=== PATIENT | female | born 1965 | race Caucasian/White ===

== ENCOUNTER 2016-10-24 20:17 | Emergency (ER) | payer SELFPAY ==
--- NOTE | 2016-10-24 21:08 | ER Document Report ---
ED Medical Screen (RME) - General Stated Complaint: ABNORMAL LABS Notes: 51 yo female sent to Ed by Dr Boyer for abnormal labs. Pt found to have Hemaglobin of 5.2 on labs drawn today. Pt c/o dyspnea, fatigue and dizziness. pt reports heavy vaginal bleeding over past year. pt is alert, VSS S1S2 tachy 102 TRAVEL OUTSIDE OF THE [place] IN LAST 30 DAYS: No - Related Data Allergies/Adverse Reactions: Sulfa (Sulfonamide Antibiotics) Allergy (Verified 08/01/13 13:30) Past Medical History - Past Medical History Cardiac Medical History: Reports: Hx Hypertension Past Surgical History: Reports: Hx Bowel Surgery - BOWEL RESECTION DUE TO DIVERTICULITIS, Hx Breast Surgery - colon resection - Immunizations Hx Diphtheria, Pertussis, Tetanus Vaccination: No
--- NOTE | 2016-10-25 00:27 | ER Document Report ---
ED General - General Chief Complaint: Abnormal Lab Results Stated Complaint: ABNORMAL LABS Notes: Patient is a 51-year-old female that comes emergency department for chief complaint of an abnormal lab results which was drawn this morning at [employer] [facility], patient states she was told comes emergency department. Patient reports symptoms of shortness of breath especially with exertion, occasional lightheadedness, and eating ice constantly. She denies chest pain. Eyes passing out. Patient admits to frequent heavy vaginal bleeding, states 3 weeks ago she was started on Prempro and since that time her vaginal bleeding has significantly reduced. She has not had a pelvic ultrasound for several years. Past medical history of hypertension, anxiety. TRAVEL OUTSIDE OF THE [place] IN LAST 30 DAYS: No - Related Data Allergies/Adverse Reactions: Sulfa (Sulfonamide Antibiotics) Allergy (Verified 10/24/16 21:13) Past Medical History - General Information source: Patient - Social History Smoking Status: Former Smoker Chew tobacco use (# tins/day): No Frequency of alcohol use: Occasional Drug Abuse: None Lives with: Family Family History: Reviewed & Not Pertinent Patient has suicidal ideation: No Patient has homicidal ideation: No - Past Medical History Cardiac Medical History: Reports: Hx Hypertension Renal/ Medical History: Denies: Hx Peritoneal Dialysis Past Surgical History: Reports: Hx Bowel Surgery - BOWEL RESECTION DUE TO DIVERTICULITIS, Hx Breast Surgery - colon resection - Immunizations Hx Diphtheria, Pertussis, Tetanus Vaccination: No Review of Systems - Review of Systems Constitutional: No symptoms reported EENT: No symptoms reported Cardiovascular: See HPI Respiratory: See HPI Gastrointestinal: No symptoms reported Genitourinary: No symptoms reported Female Genitourinary: See HPI Musculoskeletal: No symptoms reported Skin: No symptoms reported Hematologic/Lymphatic: No symptoms reported Neurological/Psychological: See HPI Physical Exam - Vital signs Vitals: Temp Pulse Resp BP Pulse Ox 98.3 F 102 H 20 141/60 H 98 10/24/16 20:30 10/24/16 20:30 10/24/16 20:30 10/24/16 20:30 10/24/16 20:30 Interpretation: Normal - General General appearance: Appears well, Alert In distress: None - HEENT Head: Normocephalic, Atraumatic Eyes: Normal Pupils: PERRL - Respiratory Respiratory status: No respiratory distress Chest status: Nontender Breath sounds: Normal Chest palpation: Normal - Cardiovascular Rhythm: Regular. No: Tachycardia - Not tachycardic on my exam Heart sounds: Normal auscultation, S1 appreciated, S2 appreciated Murmur: No - Abdominal Inspection: Normal Distension: No distension Bowel sounds: Normal Tenderness: Nontender. No: Tender, Guarding - Back Back: Normal, Nontender - Extremities General upper extremity: Normal inspection, Nontender, Normal ROM, Normal strength General lower extremity: Normal inspection, Nontender, Normal ROM, Normal strength - Neurological Neuro grossly intact: Yes Cognition: Normal Orientation: AAOx4 Milvia Coma Scale Eye Opening: Spontaneous Carlyle Coma Scale Verbal: Oriented Milvia Coma Scale Motor: Obeys Commands Carlyle Coma Scale Total: 15 Speech: Normal Motor strength normal: LUE, RUE, LLE, RLE Sensory: Normal - Psychological Associated symptoms: Normal affect, Normal mood - Skin Skin Temperature: Warm Skin Moisture: Dry Skin Color: Pale - Somewhat pale in appearance Course - Re-evaluation Re-evalutation: Chest x-ray unremarkable, CBC shows marked anemia, microcytic. Chemistry unremarkable. Patient asymptomatic on my reevaluation. Ordering transfusion. Patient clarifies that she has had a endometrial biopsy within the past 2 years , told she was "delayed menopause", states that she had "hyperplasia", she is unsure of the other details. She does not currently have an EARLY CHILDHOOD DIRECTOR. She states that the heavy bleeding has almost resolved since she started the Prempro. 10/25/16 Patient was discussed with Dr. Mcclellan, recommends 2 units PRBC and discharge with iron prescription and close follow up referral with OBGYN. This was performed, patient expresses understanding and satisfaction with this plan, states she will return if she worsens and she will call for very close followup. - Vital Signs Vital signs: Temp Pulse Resp BP Pulse Ox 98 F 86 22 H 105/57 L 99 10/25/16 11:25 10/25/16 11:25 10/25/16 15:01 10/25/16 15:01 10/25/16 15:01 - Laboratory Result Diagrams: 10/25/16 15:20 10/24/16 21:25 Laboratory results interpreted by me: 10/24/16 10/24/16 10/25/16 21:25 21:25 15:20 RBC 3.57 L Hgb 5.4 L 7.8 L D Hct 20.3 L 27.1 L MCV 57 L 60 L MCH 15.1 L 17.2 L MCHC 26.6 L 28.6 L RDW 23.7 H 28.3 H Crossmatch See Detail Discharge - Discharge Clinical Impression: Symptomatic anemia Condition: Stable Disposition: HOME, SELF-CARE Additional Instructions: You have been given blood transfusion for low hemoglobin today. You are significantly iron deficient, please take the iron as prescribed. Call the EARLY CHILDHOOD DIRECTOR referral for close follow-up for additional management. Return to emergency department for any concerning or worsening symptoms including dizziness, passing out, etc. Prescriptions: Ferrous Sulfate [Iron] 325 mg PO BID #30 tablet Forms: Return to Work Referrals: [facility] [Provider Group] - 10/26/16
[2016-10-25 02:57] LABS: ABSOLUTE EOSINOPHILS # (AUTO) 0.4 10^3/uL (0.0-0.6); ABSOLUTE LYMPHOCYTES (AUTO) 1.8 10^3/uL (0.5-4.7); ABSOLUTE MONOCYTES (AUTO) 0.4 10^3/uL (0.1-1.4); ABSOLUTE NEUT (AUTO) 6.4 10^3/uL (1.7-8.2); BASOPHILS % (AUTO) 0.4 % (0-2); EOSINOPHILS % (AUTO) 4.5 % (0-6); HEMATOCRIT 20.3 % (36.0-47.0); LYMPHOCYTES % (AUTO) 19.9 % (13-45); MEAN CORPUSCULAR HEMOGLOBIN 15.1 pg (27.0-33.4); MEAN CORPUSCULAR HGB CONC 26.6 g/dL (32.0-36.0); MONOCYTES % (AUTO) 4.7 % (3-13); RED BLOOD COUNT 3.57 10^6/uL (3.72-5.28); RED CELL DISTRIBUTION WIDTH 23.7 % (11.5-14.0); SEGMENTED NEUTROPHILS % (AUTO) 70.5 % (42-78)
[2016-10-25 03:03] LABS: ALANINE AMINOTRANSFERASE 23 U/L (9-52); ALKALINE PHOSPHATASE 79 U/L (38-126); ANION GAP 11 (5-19); ASPARTATE AMINO TRANSFERASE 19 U/L (14-36); BILIRUBIN,TOTAL 0.5 mg/dL (0.2-1.3); BLOOD UREA NITROGEN 14 mg/dL (7-20); CALCIUM 9.1 mg/dL (8.4-10.2); CARBON DIOXIDE 23 mmol/L (22-30); CHLORIDE 104 mmol/L (98-107); CREATINE KINASE 33 U/L (30-135); CREATININE RESULT 0.83 mg/dL (0.52-1.25); GLUCOSE 94 mg/dL (75-110); POTASSIUM 4.5 mmol/L (3.6-5.0); SODIUM 138.3 mmol/L (137-145); TOTAL PROTEIN 7.2 g/dL (6.3-8.2)
[2016-10-25 03:23] LABS: CREATINE KINASE MB < 0.22 ng/mL (<4.55); TROPONIN I < 0.012 ng/mL
[2016-10-25 03:30] LABS: HGB HCT DIFFERENCE -4.1
[2016-10-25 03:35] LABS: MEAN CORPUSCULAR VOLUME 57 fl (80-97)
[2016-10-25 03:40] LABS: ANISOCYTOSIS 3+; HYPOCHROMASIA 2+; MICROCYTOSIS 4+; POIKILOCYTOSIS SLIGHT; TOXIC GRANULATION SLIGHT
[2016-10-25 03:43] LABS: OVALOCYTES SLIGHT; SCHISTOCYTES SLIGHT; TEAR DROP CELLS SLIGHT
[2016-10-25 03:44] LABS: HEMOGLOBIN 5.4 g/dL (12.0-15.5)
[2016-10-25] MEDS ORDERED: NORMAL SALINE 250 ML IV PRN ×2 (04:00)
[2016-10-25 15:51] LABS: ABSOLUTE EOSINOPHILS # (AUTO) 0.3 10^3/uL (0.0-0.6); ABSOLUTE LYMPHOCYTES (AUTO) 1.3 10^3/uL (0.5-4.7); ABSOLUTE MONOCYTES (AUTO) 0.4 10^3/uL (0.1-1.4); ABSOLUTE NEUT (AUTO) 5.7 10^3/uL (1.7-8.2); BASOPHILS % (AUTO) 0.4 % (0-2); EOSINOPHILS % (AUTO) 3.6 % (0-6); HEMATOCRIT 27.1 % (36.0-47.0); HGB HCT DIFFERENCE -3.7; LYMPHOCYTES % (AUTO) 17.1 % (13-45); MEAN CORPUSCULAR HEMOGLOBIN 17.2 pg (27.0-33.4); MEAN CORPUSCULAR HGB CONC 28.6 g/dL (32.0-36.0); MEAN CORPUSCULAR VOLUME 60 fl (80-97); MONOCYTES % (AUTO) 5.2 % (3-13); RED CELL DISTRIBUTION WIDTH 28.3 % (11.5-14.0); SEGMENTED NEUTROPHILS % (AUTO) 73.7 % (42-78); WHITE BLOOD COUNT 7.8 10^3/uL (4.0-10.5)
[2016-10-25 15:57] LABS: HEMOGLOBIN 7.8 g/dL (12.0-15.5)
[2016-10-25 16:04] LABS: ANISOCYTOSIS 3+; HYPOCHROMASIA 2+; MICROCYTOSIS 3+; POLYCHROMASIA SLIGHT; TOXIC GRANULATION SLIGHT
[2016-10-25 16:05] LABS: OVALOCYTES SLIGHT; TARGET CELLS SLIGHT
[2016-10-25 16:22] VITALS: BP 105/57
== END 2016-10-25 16:40 | disposition home or self-care (01) ==
LOC: ER 20:17
DX: D50.9 Iron deficiency anemia, unspecified (principal); N93.9 Abnormal uterine and vaginal bleeding, unspecified; Z79.899 Other long term (current) drug therapy; R06.02 Shortness of breath; R42 Dizziness and giddiness; I10 Essential (primary) hypertension; Z88.2 Allergy status to sulfonamides; Z87.891 Personal history of nicotine dependence
CPT/HCPCS: 99284; 86900; 86901; 36415; 82553; 36430; 86850; 82550; 85025; 80053; 84484; 86920; 71010; P9016

== ENCOUNTER → 2016-10-24 | Outpatient (CLI) | payer SELFPAY ==
[2016-10-24 18:41] LABS: ABSOLUTE EOSINOPHILS # (AUTO) 0.3 10^3/uL (0.0-0.6); ABSOLUTE LYMPHOCYTES (AUTO) 1.5 10^3/uL (0.5-4.7); ABSOLUTE MONOCYTES (AUTO) 0.5 10^3/uL (0.1-1.4); ABSOLUTE NEUT (AUTO) 6.4 10^3/uL (1.7-8.2); BASOPHILS % (AUTO) 0.5 % (0-2); EOSINOPHILS % (AUTO) 3.9 % (0-6); HGB HCT DIFFERENCE -3.8; MEAN CORPUSCULAR HEMOGLOBIN 15.2 pg (27.0-33.4); MEAN CORPUSCULAR HGB CONC 27.1 g/dL (32.0-36.0); MONOCYTES % (AUTO) 5.4 % (3-13); RED BLOOD COUNT 3.56 10^6/uL (3.72-5.28); RED CELL DISTRIBUTION WIDTH 23.5 % (11.5-14.0); SEGMENTED NEUTROPHILS % (AUTO) 73.2 % (42-78); WHITE BLOOD COUNT 8.8 10^3/uL (4.0-10.5)
[2016-10-24 19:14] LABS: FREE T3 3.6 pg/mL (2.77-5.27)
[2016-10-24 19:27] LABS: THYROID STIMULATING HORMONE 2.34 uIU/mL (0.47-4.68)
[2016-10-24 19:29] LABS: ANISOCYTOSIS 2+; HYPOCHROMASIA 2+; MICROCYTOSIS 4+; TARGET CELLS SLIGHT; TOXIC GRANULATION SLIGHT
[2016-10-24 19:30] LABS: HEMOGLOBIN 5.4 g/dL (12.0-15.5); MEAN CORPUSCULAR VOLUME 56 fl (80-97)
[2016-10-25 11:02] LABS: PATH REVIEW PATHOLOGIST REVIEWED
== END ==
LOC: OD 17:36
PROVIDERS: ATTEND Internal Medicine
DX: R00.2 Palpitations (principal); R06.02 Shortness of breath; R94.31 Abnormal electrocardiogram [ECG] [EKG]; I10 Essential (primary) hypertension; I47.1 Supraventricular tachycardia; D64.9 Anemia, unspecified; E78.5 Hyperlipidemia, unspecified; Z79.899 Other long term (current) drug therapy
CPT/HCPCS: 36415; 84439; 84443; 84481; 85025

== ENCOUNTER → 2016-11-02 | Outpatient (CLI) | payer OTHER | LOC: RAD 16:36 | PROVIDERS: ATTEND Obstetrics & Gynecology | DX: N93.8 Other specified abnormal uterine and vaginal bleeding (principal); D64.9 Anemia, unspecified; N83.201 Unspecified ovarian cyst, right side | CPT/HCPCS: 76830; 76856 ==

== ENCOUNTER → 2017-02-25 | Outpatient (CLI) | payer SELFPAY | LOC: LAB 19:12 | PROVIDERS: ATTEND Nurse Practitioner Acute Care | DX: R30.0 Dysuria (principal) | CPT/HCPCS: 87086 ==

== ENCOUNTER → 2019-01-06 | Outpatient (CLI) | payer OTHER ==
--- NOTE | 2019-01-06 09:33 | WOMENS IMAGING REPORT ---
EXAM DESCRIPTION: [place] BILATERAL SCREEN COMPLETED DATE/TIME: 01/06/2019 7:58 am REASON FOR STUDY: Z00.00 ENCOUNTER FOR GENERAL ADULT MEDICAL EXAMINATION Z12.31 ENCNTR SCREEN MAMMO GRAM FOR MALIGNANT NEOPLASM OF FELI COMPARISON: 10/19/2014. EXAM PARAMETERS: Standard craniocaudal and mediolateral oblique views of each breast recorded using digital acquisition. Read with the assistance of CAD. .FORMERLY [facility] - [employer] Adobe Flex Developer Version 9.2 LIMITATIONS: None. FINDINGS: No suspicious masses, suspicious calcifications or architectural distortion. No areas of s uspicion. IMPRESSION: ASSESSMENT: Negative MAMMOGRAM. BIRADS 1 BREAST DENSITY: a. The breasts are almost entirely fatty. BIRAD: 1 NEGATIVE RECOMMENDATION: ROUTINE SCREENING COMMENT: The patient has been notified of the results by letter per SA requirements. Additional no tification policies are in place for contacting patient with suspicious or incomplete findings. Quality ID #[id number]: The [employer] recommends an annual screening mammogram for women aged 40 years or over. This facility utilizes a reminder system to ensure that all patients receive reminder letters, and/or direct phone calls for appointments. This includes reminders for routine scr eening mammograms, diagnostic mammograms, or other Breast Imaging Interventions when appropriate. Th is patient will be placed in the appropriate reminder system. TECHNICAL DOCUMENTATION: FINDING NUMBER: (1) ASSESSMENT: (1) JOB ID: [id number] [employer]- All Rights Reserved Reading location - IP/workstation name: [email or web address]
== END ==
LOC: WI 06:56
PROVIDERS: ATTEND Nurse Practitioner Acute Care
DX: Z12.31 Encounter for screening mammogram for malignant neoplasm of breast (principal)
CPT/HCPCS: 77067

== ENCOUNTER → 2019-01-25 | Outpatient (CLI) | payer OTHER | LOC: OD 11:03 | PROVIDERS: ATTEND Nurse Practitioner Family | DX: R30.0 Dysuria (principal) | CPT/HCPCS: 87086; 87088; 87186 ==

== ENCOUNTER 2019-05-12 17:51 | Emergency (ER) | payer OTHER ==
[2019-05-12] MEDS ORDERED: IBUPROFEN 800 MG TABLET PO ONE (18:48)
--- NOTE | 2019-05-12 18:50 | ER Document Report ---
ED Medical Screen (RME) - General Chief Complaint: Shoulder Pain Stated Complaint: LEFT ARM PAIN Time Seen by Provider: 05/12/19 18:44 Primary Care Provider: JENS MARCUS NP [Primary Care Provider] - Follow up as needed Mode of Arrival: Ambulatory Information source: Patient Notes: This 53-year-old female presents emergency department with left shoulder pain radiating down her left arm. 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 Patient reports since that time she has had pain. Patient is right-handed. Patient also has Knot to her left upper arm. She is not on any anticoagulants. Good radial pulse good cap refill. Reports she is been taking 800 mg of Motrin without relief of symptoms. I have greeted and performed a rapid initial assessment of this patient. A comprehensive ED assessment and evaluation of the patient, analysis of test results and completion of the medical decision making process will be conducted by additional ED providers. Dictation of this chart was performed using voice recognition software; therefore, there may be some unintended grammatical errors. TRAVEL OUTSIDE OF THE [place] IN LAST 30 DAYS: No - Related Data Allergies/Adverse Reactions: Sulfa (Sulfonamide Antibiotics) Allergy (Severe, Verified 05/12/19 18:45) unknown Past Medical History - Social History Chew tobacco use (# tins/day): No Frequency of alcohol use: None - Past Medical History Cardiac Medical History: Reports: Hx Hypertension Denies: Hx Coronary Artery Disease, Hx Heart Attack Pulmonary Medical History: Denies: Hx Asthma, Hx Bronchitis, Hx COPD, Hx Pneumonia Neurological Medical History: Denies: Hx Cerebrovascular Accident, Hx Seizures Renal/ Medical History: Denies: Hx Peritoneal Dialysis Musculoskeltal Medical History: Reports Hx Arthritis - neck Psychiatric Medical History: Reports: Hx Depression Past Surgical History: Reports: Hx Bowel Surgery - BOWEL RESECTION DUE TO DIVERTICULITIS, Hx Breast Surgery - colon resection - Immunizations Hx Diphtheria, Pertussis, Tetanus Vaccination: No Physical Exam - Vital signs Vitals: Temp Pulse Resp BP Pulse Ox 98.1 F 95 16 145/76 H 94 05/12/19 18:06 05/12/19 18:06 05/12/19 18:06 05/12/19 18:06 05/12/19 18:06 Course - Vital Signs Vital signs: Temp Pulse Resp BP Pulse Ox 98.1 F 95 16 145/76 H 94 05/12/19 18:06 05/12/19 18:06 05/12/19 18:06 05/12/19 18:06 05/12/19 18:06 Doctor's Discharge - Discharge Referrals: JENS MARCUS, [employer] TRUING INSPECTOR [Primary Care Provider] - Follow up as needed
--- NOTE | 2019-05-12 19:20 | RADIOLOGY REPORT (SQ) ---
EXAM DESCRIPTION: SHOULDER LEFT 2 OR MORE VIEWS COMPLETED DATE/TIME: 05/12/2019 7:08 pm REASON FOR STUDY: PAIN WITH MOVEMENT COMPARISON: None. NUMBER OF VIEWS: Three views. TECHNIQUE: Internal rotation, external rotation, and Y view images acquired of the left shoulder. LIMITATIONS: None. FINDINGS: MINERALIZATION: Normal. BONES: No acute fracture. No worrisome bone lesions. JOINTS: No dislocation. VISUALIZED LUNGS AND RIBS: No pneumothorax. No rib fracture. SOFT TISSUES: No radiopaque foreign body. OTHER: No other significant finding. IMPRESSION: NO RADIOGRAPHIC EVIDENCE OF ACUTE INJURY. TECHNICAL DOCUMENTATION: JOB ID: [id number] [place]-72 2010 [employer]- All Rights Reserved Reading location - IP/workstation name: [email or web address]
[2019-05-12] MEDS ORDERED: LIDOCAINE 5% (700 MG) TRANSDERMAL ADH..PATCH TP ONE (20:40)
--- NOTE | 2019-05-12 20:45 | ER Document Report ---
HPI - HPI Patient complains to provider of: left shoulder pain Time Seen by Provider: 05/12/19 18:44 Onset: Other - 3 wks Onset/Duration: Persistent Quality of pain: Achy Pain Level: 3 Context: Patient presents complaining of left shoulder and upper arm pain for the past 3 weeks. Patient states that she picked up [id number]-4-rbni-old granddaughter and had a sudden sharp pain to the left shoulder area. Patient is right-hand dominant. Associated Symptoms: Other - Left shoulder pain Exacerbated by: Movement Relieved by: Denies Similar symptoms previously: No Recently seen / treated by doctor: No - ROS ROS below otherwise negative: Yes Systems Reviewed and Negative: Yes All other systems reviewed and negative - NEURO Neurology: DENIES: Weakness - CARDIOVASCULAR Cardiovascular: DENIES: Chest pain - GASTROINTESTINAL Gastrointestinal: DENIES: Nausea - REPRODUCTIVE Reproductive: DENIES: : - MUSCULOSKELETAL Musculoskeletal: REPORTS: Extremity pain - left arm/shoulder, Back Pain - DERM Skin Color: Normal Skin Problems: None Past Medical History - General Information source: Patient - Social History Smoking Status: Never Smoker Chew tobacco use (# tins/day): No Frequency of alcohol use: Occasional Drug Abuse: None 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 Lives with: Family Family History: Reviewed & Not Pertinent Patient has suicidal ideation: No Patient has homicidal ideation: No - Past Medical History Cardiac Medical History: Reports: Hx Hypertension Renal/ Medical History: Denies: Hx Peritoneal Dialysis Musculoskeletal Medical History: Reports Hx Arthritis - neck Psychiatric Medical History: Reports: Hx Depression Past Surgical History: Reports: Hx Bowel Surgery - BOWEL RESECTION DUE TO DIVERTICULITIS, Hx Breast Surgery - colon resection - Immunizations Hx Diphtheria, Pertussis, Tetanus Vaccination: No Vertical Provider Document - CONSTITUTIONAL Agree With Documented VS: Yes Exam Limitations: No Limitations General Appearance: WD/WN, No Apparent Distress - INFECTION CONTROL TRAVEL OUTSIDE OF THE [place] IN LAST 30 DAYS: No - HEENT HEENT: Atraumatic, Normocephalic - NECK Neck: Normal Inspection, Supple - RESPIRATORY Respiratory: Breath Sounds Normal, No Respiratory Distress - CARDIOVASCULAR Cardiovascular: Regular Rate, Regular Rhythm Pulses: Normal: Radial - BACK Back: Abnormal Inspection - Left trapezius muscle tenderness - MUSCULOSKELETAL/EXTREMETIES Musculoskeletal/Extremeties: MAEW, FROM - Patient with full passive range of motion to left shoulder, Tender - Left shoulder joint tenderness over AC joint, deltoid and left upper arm tricep, normal skin color and temperature overlying joint, No Edema Notes: No dislocation or deformity to left shoulder joint. - NEURO Level of Consciousness: Awake, Alert, Appropriate Motor/Sensory: No Motor Deficit - DERM Integumentary: Warm, Dry Adult Front & Back Diagram: 1 - Mobile subcutaneous skin lesion, normal skin color overlying lesion Course - Re-evaluation Re-evalutation: 05/12/19 20:42 Patient encouraged to follow-up with orthopedics for further evaluation. Patient encouraged to see general surgeon for excision of subcutaneous nodular lesion. - Vital Signs Vital signs: Temp Pulse Resp BP Pulse Ox 98.1 F 95 16 145/76 H 94 05/12/19 18:06 05/12/19 18:06 05/12/19 18:06 05/12/19 18:06 05/12/19 18:06 Procedures - Immobilization Left Shoulder Pre-Proc Neuro Vasc Exam: Normal Immobilizer type: Shoulder immobilizer Performed by: PCT Post-Proc Neuro Vasc Exam: Normal Alignment checked and good: Yes Discharge - Discharge Clinical Impression: Sprain of left shoulder Qualifiers: Encounter type: initial encounter Shoulder sprain type: unspecified sprain Qualified Code(s): S43.402A - Unspecified sprain of left shoulder joint, initial encounter Strain of left trapezius muscle Qualifiers: Encounter type: initial encounter Qualified Code(s): S46.812A - Strain of other muscles, fascia and tendons at shoulder and upper arm level, left arm, initial encounter Strain of left triceps Qualifiers: Encounter type: initial encounter Qualified Code(s): S46.312A - Strain of muscle, fascia and tendon of triceps, left arm, initial encounter Condition: Stable Disposition: HOME, SELF-CARE Instructions: Muscle Relaxers ([facility]), Muscle Strain ([facility]), Shoulder Injury ([facility]) Additional Instructions: Return immediately for any new or worsening symptoms Followup with your primary care provider, call tomorrow to make a followup appointment Follow-up with orthopedics for further evaluation of left shoulder joint injury Follow-up with general surgeon for evaluation and removal of subcutaneous lesion to left arm Prescriptions: Cyclobenzaprine HCl [Flexeril 10 Mg Tablet] 10 mg PO TID #15 tablet Lidocaine [Lidoderm 5% (700 mg) Transdermal Patch] 1 patch TP DAILY PRN #10 adh..patch PRN Reason: Referrals: BLAKE HOBBS JR, DO [ACTIVE PROVISIONAL STAFF] - Follow up as needed [facility] [Provider Group] - Follow up as needed [facility] [Provider Group] - Follow up as needed
[2019-05-12 21:01] VITALS: BP 139/81
== END 2019-05-12 21:02 | disposition home or self-care (01) ==
LOC: ER 17:51
DX: S43.402A Unspecified sprain of left shoulder joint, initial encounter (principal); S46.312A Strain of muscle, fascia and tendon of triceps, left arm, initial encounter; S29.012A Strain of muscle and tendon of back wall of thorax, initial encounter; X58.XXXA Exposure to other specified factors, initial encounter; M25.512 Pain in left shoulder; M79.622 Pain in left upper arm; M54.9 Dorsalgia, unspecified; L98.9 Disorder of the skin and subcutaneous tissue, unspecified; I10 Essential (primary) hypertension
CPT/HCPCS: 99283; 73030; L3650